=== PATIENT | female | born 1965 | race Caucasian/White ===

== ENCOUNTER 2022-09-10 14:13 | Inpatient (IN) | payer OTHER ==
[~2022-09-10] VITALS: Ht 165.1 cm; Wt 63.5 kg
[2022-09-10 14:18] VITALS: BP 105/56
--- NOTE | 2022-09-10 14:20 | NUR ---
PT BIB [facility] C/C RECTAL BLEEDING S/P COLONOSCOPY. EBL 300. ON ARRIVAL PT ACTIVELY BLEEDING. PADS PLACED. HYPOTENSIVE. IV INSERTED TO RIGHT AC# 18GUAGE BLOOD DRAWN LEFT AC #20GUAGE. NSR ON MONITOR. FLUIDS INUFISNG.
--- NOTE | 2022-09-10 14:45 | NUR ---
LARGE AMOUNTS OF BLOOD CLOTS NOTED APPROX 1000ML EBL. DR MILLS AWARE
[2022-09-10 14:53] LABS: BASOPHILS % (AUTO) 0.2 % (0.0-2.0); EOSINOPHILS % (AUTO) 0.2 % (0.0-4.0); HEMATOCRIT 35.1 % (36-48); HEMOGLOBIN 11.8 g/dL (12.0-16.0); LYMPHOCYTES % (AUTO) 10.8 % (20.5-51.1); MEAN CORPUSCULAR HEMOGLOBIN 32 pg (27-31); MEAN CORPUSCULAR HGB CONC 34 g/dL (33-37); MEAN CORPUSCULAR VOLUME 95.9 fL (80-94); MONOCYTES # (AUTO) 0.4 K/uL (0.8-1.0); MONOCYTES % (AUTO) 4.3 % (1.7-9.3); NEUTROPHILS # (AUTO) 7.8 K/uL (1.8-7.7); NEUTROPHILS % (AUTO) 84.5 % (42.2-75.2); PLATELET COUNT (AUTO) 244 K/uL (140-450); RED BLOOD CELL COUNT(AUTO) 3.66 MIL/uL (4.20-5.40); WHITE BLOOD COUNT (AUTO) 9.3 K/uL (4.8-10.8)
[2022-09-10] MEDS ORDERED: MAGNESIUM OXIDE 400 MG TAB PO PRN (15:00)
[2022-09-10] MEDS ORDERED: POTASSIUM CHLORIDE 10 MEQ TABER PO PRN (15:00)
[2022-09-10] MEDS ORDERED: ONDANSETRON 4 MG/2 ML VIAL IVP PRN (15:00)
[2022-09-10] MEDS ORDERED: ACETAMINOPHEN 325 MG TAB PO PRN (15:00)
[2022-09-10] MEDS ORDERED: HYDROcodone/APAP 5/325 MG 1 TAB TAB PO PRN (15:00)
[2022-09-10] MEDS ORDERED: MORPHINE SULFATE 4 MG/ML SYR IVP PRN (15:00)
[2022-09-10 15:10] LABS: ANION GAP 14.6 (8-16); CREATININE 0.7 mg/dL (0.6-1.3); POTASSIUM 3.6 mmol/L (3.5-5.1); TOTAL BILIRUBIN 0.7 mg/dL (0.0-1.0)
[2022-09-10] MEDS ORDERED: fentaNYL citrate 0.05 MG/ML VIAL ONE (15:24)
[2022-09-10] MEDS ORDERED: MIDAZOLAM 2 MG/2 ML VIAL ONE (15:24)
[2022-09-10] MEDS ORDERED: LIDOCAINE 2% 100 MG/5 ML UJET TP ONE (15:25)
--- NOTE | 2022-09-10 15:35 | NUR ---
GI AT BEDSIDE
--- NOTE | 2022-09-10 16:04 | NUR ---
GI MD COMPLETED PROCEDURE NO ACTIVE BLEEDING. PT TO BE ADMITTED TO TELE
[2022-09-10] MEDS ORDERED: EPINEPHrine PFS 0.1 MG/ML SYR IVP ONE (16:12)
[2022-09-10] MEDS ORDERED: SIMETHICONE 40 MG/0.6 ML ONE (16:12)
[2022-09-10] MEDS ORDERED: MIDAZOLAM 2 MG/2 ML VIAL IVP ONE (16:25)
[2022-09-10] MEDS ORDERED: fentaNYL citrate 0.05 MG/ML VIAL IVP ONE (16:25)
[2022-09-10] MEDS ORDERED: FAMO20TA13 PO (18:45)
[2022-09-10] MEDS ORDERED: ATA25 PO (18:45)
[2022-09-10] MEDS ORDERED: ESCI5TAB18 PO (18:45)
--- NOTE | 2022-09-10 19:10 | NUR ---
REPORT RECEIVED FROM RICKY COMER AND RICKY MART.
--- NOTE | 2022-09-10 19:19 | NUR ---
LAB AT BEDSIDE
[2022-09-10 19:29] LABS: BASOPHILS % (AUTO) 0.1 % (0.0-2.0); HEMATOCRIT 32.1 % (36-48); HEMOGLOBIN 10.9 g/dL (12.0-16.0); LYMPHOCYTES # (AUTO) 0.7 K/uL (2.5-16.5); LYMPHOCYTES % (AUTO) 6.4 % (20.5-51.1); MEAN CORPUSCULAR HEMOGLOBIN 32 pg (27-31); MEAN CORPUSCULAR HGB CONC 34 g/dL (33-37); MEAN CORPUSCULAR VOLUME 94.1 fL (80-94); MONOCYTES # (AUTO) 0.5 K/uL (0.8-1.0); MONOCYTES % (AUTO) 4.8 % (1.7-9.3); NEUTROPHILS # (AUTO) 9.6 K/uL (1.8-7.7); NEUTROPHILS % (AUTO) 88.7 % (42.2-75.2); PLATELET COUNT (AUTO) 163 K/uL (140-450); RED BLOOD CELL COUNT(AUTO) 3.41 MIL/uL (4.20-5.40); RED CELL DISTRIBUTION WIDTH 14.9 % (11.6-13.7); WHITE BLOOD COUNT (AUTO) 10.8 K/uL (4.8-10.8)
--- NOTE | 2022-09-10 19:40 | NUR ---
REPORT GIVEN TO RICKY GALVEZ. TRANSFER OF CARE.
--- NOTE | 2022-09-10 19:45 | NUR ---
Patient will be admitted to care of MD DIMA. Admited to TELEMETRY. Will go to room 123A. Belongings list completed. Report to RICKY GALVEZ. TRANSFER OF CARE.
[2022-09-10 20:05] VITALS: BP 98/60
--- NOTE | 2022-09-10 20:05 | NUR ---
RECEIVED REPORT FROM ER NURSE YOLANDA FOR CONTINUITY OF CARE. PATIENT IS A&O X4. PATIENT IS ON ROOM AIR, BREATHING IS NORMAL WITH SYMMETRICAL RISE AND FALL OF CHEST. PATIENT'S IV IS A 18G LAC, A 18G RAC, AND A 22G R HAND; NO FLUIDS RUNNING AT THIS TIME. PATIENT HAD RECEIVED 1 UNI OF BLOOD IN ER WITH 2 BOLUSES PER ER NURSE YOLANDA. PATIENT IS AWAKE AND ALERT. PATIENT'S MOOD IS POSITIVE; PATIENT GREETED ME WHEN I INTRODUCED MYSELF, SMILING AND APPEARS TO BE IN A GOOD MOOD. PATIENT WAS ABLE TO AMBULATE WITHOUT ASSISTANCE FROM RNEY TO BED. PATIENT'S VITALS ARE: BP 98/60, HR 96, O2 98, RR 18, TEMP 96.6. BED IS IN LOWEST POSITION, WHEELS LOCKED, CALL LIGHT IN PLACE. WILL CONTINUE TO OBSERVE PATIENT.
--- NOTE | 2022-09-10 22:30 | NUR ---
PATIENT REQUESTED THAT HER IV'S BE REMOVED, BECAUSE THEY WERE UNCOMFORTABLE. I FLUSHED THE IV SITES. ALL IV'S WERE PATENT. PATIENT STILL WANTED THEM REMOVED. I EXPLAINED TO THE PATIENT THAT WE NEEDED TO KEEP THE IV SITES IN BECAUSE SHE WOULD NEED THEM IF WE WERE TO GIVE HER FLUIDS OR BLOOD. PATIENT ASKED THAT THE TWO IVS THAT WERE LOCATED IN HER ARMS BE REMOVED (BOTH 18G AC), SINCE SHE HAD THE ONE IN HER HAND. I EXPLAINED TO HER THAT THOSE IVS WERE FOR BLOOD WHILE THE IV IN HER HAND WAS FOR FLUID. SHE CONTINUED TO REQUEST THAT THEY BE REMOVED, SO I ASKED HER WHICH ONE WAS CAUSING THE MOST DISCOMFORT. SHE STATED THE ONE IN HER RIGHT ARM. I TOLD I COULD REMOVE THAT ONE BUT I WOULD STILL NEED TO KEEP THE OTHER IN, IN CASE SHE NEEDED MORE BLOOD. SHE AGREED. 18G RAC WAS REMOVED; LAC AND RIGHT HAND ARE STILL PATENT. WILL CONTINUE TO OBSERVE PATIENT.
[2022-09-11] VITALS: BP 96/55
--- NOTE | 2022-09-11 00:30 | NUR ---
OBTAINED 0000 VITALS FROM PATIENT. VITALS WERE: BP 96/55, HR 85, O2 97, RR 18, TEMP 98.2. PATIENT WAS SLEEPING WHEN I ENTERED THE ROOM. PATIENT WAS EASILY AWAKENED. BREATHING WAS NORMAL WITH SYMMETRICAL RISE AND FALL OF CHEST. WILL CONTINUE TO OBSERVE PATIENT.
--- NOTE | 2022-09-11 03:00 | NUR ---
LOOKED IN ON PATIENT. PATIENT WAS SLEEPING, LYING SUPINE. BREATHING WAS NORMAL WITH SYMMETRICAL RISE AND FALL OF CHEST. BED WAS IN LOWEST POSITION WHEELS LOCKED, CALL LIGHT IN PLACE. WILL CONTINUE TO OBSERVE PATIENT.
[2022-09-11 04:00] VITALS: BP 97/50
--- NOTE | 2022-09-11 04:30 | NUR ---
ENTERED ROOM TO OBTAIN 0400 VITALS. VITALS WERE: BP 97/50, HR 70, O2 99, RR 18, TEMP 97.5. PATIENT WAS SLEEPING WHEN I ENTERED ROOM, LYING SUPINE. PATIENT WAS EASILY AWAKENED AND COOPERATIVE FOR VITALS. PATIENT ASKED AGAIN TO HAVE HER IV REMOVED. I RE-EXPLAINED TO THE PATIENT THAT THE IVS NEED TO STAY IN PLACE IN CASE SHE NEEDS BLOOD OR FLUIDS. I FLUSHED BOTH IVS TO ENSURE PATENCY. IVS WERE PATENT. PATIENT'S BREATHING WAS NORMAL WITH SYMMETRICAL RISE AND FALL OF CHEST. WILL CONTINUE TO OBSERVE PATIENT.
[2022-09-11 05:30] LABS: BASOPHILS % (AUTO) 0.3 % (0.0-2.0); EOSINOPHILS % (AUTO) 0.5 % (0.0-4.0); HEMOGLOBIN 8.4 g/dL (12.0-16.0); LYMPHOCYTES # (AUTO) 1.5 K/uL (2.5-16.5); LYMPHOCYTES % (AUTO) 31.2 % (20.5-51.1); MEAN CORPUSCULAR HEMOGLOBIN 31 pg (27-31); MEAN CORPUSCULAR HGB CONC 34 g/dL (33-37); MEAN CORPUSCULAR VOLUME 93.4 fL (80-94); MONOCYTES # (AUTO) 0.4 K/uL (0.8-1.0); MONOCYTES % (AUTO) 9.2 % (1.7-9.3); NEUTROPHILS # (AUTO) 2.9 K/uL (1.8-7.7); NEUTROPHILS % (AUTO) 58.8 % (42.2-75.2); PLATELET COUNT (AUTO) 163 K/uL (140-450); RED BLOOD CELL COUNT(AUTO) 2.68 MIL/uL (4.20-5.40); RED CELL DISTRIBUTION WIDTH 14.5 % (11.6-13.7); WHITE BLOOD COUNT (AUTO) 4.8 K/uL (4.8-10.8)
[2022-09-11 06:24] LABS: ALBUMIN 2.4 g/dL (3.4-5.0); ANION GAP 10.2 (8-16); CARBON DIOXIDE 25.5 mmol/L (21-32); CREATININE 0.7 mg/dL (0.6-1.3); MAGNESIUM 1.9 mg/dL (1.8-2.4); PHOSPHORUS 3.2 mg/dL (2.5-4.9); POTASSIUM 3.7 mmol/L (3.5-5.1); TOTAL BILIRUBIN 0.8 mg/dL (0.0-1.0)
--- NOTE | 2022-09-11 06:39 | NUR ---
RECEIVED PHONE CALL FROM DR VASQUEZ (GI DOCTOR). HE INQUIRED HOW THE PATIENT WAS DOING. I INFORMED HIM OF THE PATIENT'S LAST SET OF VITALS, PATIENT'S ABILITY TO AMBULATE WITHOUT ASSISTANCE, PATIENT'S 2 VOIDS AND ONE BM. HE ASKED ABOUT THE BM; I TOLD HIM PATIENT STATED THAT THE BM WAS NORMAL WITH A LITTLE BIT OF BLOOD IN IT. DR. VASQUEZ SAID THAT'S FINE; AND STATED THAT THE PATIENT WAS OKAY TO ADVANCE TO A REGULAR DIET AND OKAY TO BE D/C HOME FROM A GI PERSPECTIVE. HE ALSO STATED THAT THE OFFICE WILL CALL THE PATIENT FOR A FOLLOW UP APPOINTMENT. I PUT IN ORDER FOR NEW DIET AND INFORMED PATIENT OF DOCTOR'S CALL. PATIENT WAS GLAD TO HEAR IT. WILL CONTINUE TO OBSERVE PATIENT.
--- NOTE | 2022-09-11 07:30 | NUR ---
ENDORSED TO DAY SHIFT NURSE GUME FOR CONTINUITY OF CARE. PATIENT IS STABLE.
[2022-09-11 08:00] VITALS: BP 97/53
--- NOTE | 2022-09-11 10:12 | NUR ---
PATIENT HAS BEEN SCREENED AND CATEGORIZED HIGH NUTRITION RISK. PATIENT WILL BE SEEN WITHIN 1-2 DAYS OF ADMISSION. 09/10/22-09/12/22 [facility] REFERRAL RECEIVED FOR DIARRHEA > 3 DAYS REVIEWED BY MARCOS PINA [address]
[2022-09-11 12:00] VITALS: BP 93/51
[2022-09-11 14:08] VITALS: BP 93/51
--- NOTE | 2022-09-11 14:21 | NUR ---
DC PLANNING SW MET W/PT AT BEDSIDE TO COMPLETE ASSESSMENT. PT REPORTS RESIDING ON A GROUND FLOOR APT, ALONE AT THE ADDRESS LISTED ON FILE. PT IDENTIFIED SOULEYMANE HELLER, DAUGHTER, AND ANTONI CLOUD, SON, EMERGENCY CONTACT. PT REPORTS MEETING W/PCP. DR GIRNO NEEDED, LAST VISIT; 2 WEEKS AGO. SW SPOKE TO PT ABOUT IMPORTANCE OF FOLLOW UP CARE, PT RECEPTIVE AND DECLINED SW OFFER TO MAKE FOLLOW UP APPT. PT REPORTS SHE WILL MAKE HER OWN APT ONCE SHE IS ABLE TO WORK AROUND HER WORK SCHEDULE. PATIENT DENIES TAKING MEDICATION AT THIS TIME AND DENIES BARRIERS IN ACCESS TO MEDICATION, IF NEEDED. PT REPORTS RECEIVING MEDICATION FROM [facility] IN [place], WHEN NEEDED. PT INDEPENDENT IN ALL ACTIVITIES AND DENIES USE OF DME. PT DENIED MH HX/ SA. PT REPORTS ADEQUATE FOOD IN THE HOME AND REPORTS RECEIVING [employer] BENEFITS OF $23/MONTH. PT REPORTS DC PLAN IS TO RETURN [place] WITH DAUGHTER PROVIDING TRANSPORTATION , WHEN MEDICALLY STABLE. Addendum: 09/11/22 at 1422 by Dread BEDOLLA Amended: Links added.
--- NOTE | 2022-09-11 14:25 | NUR ---
DISCHARGE INSTRUCTIONS AND PLAN OF CARE DISCUSSED WITH PATIENT. PATIENT VERBALIZED UNDERSTANDING. IV DISCONTINUED. PATIENT DISCHARGED HOME VIA WHEELCHAIR IN PRIVATE CAR. Bess TESFAYE RN.
== END 2022-09-11 14:45 | disposition home or self-care (01) | DRG 810 ==
LOC: MED 14:13 → MTU 15:02
PROVIDERS: ADMIT Hospitalist; ATTEND Student in an Organized Health Care Education/Training Program
PROC: 0W3P8ZZ Control Bleeding in Gastrointestinal Tract, Via Natural or Artificial Opening Endoscopic (ICD-10-PCS; 2022-09-10)
PROC: 30233N1 Transfusion of Nonautologous Red Blood Cells into Peripheral Vein, Percutaneous Approach (ICD-10-PCS; 2022-09-10)
PROC: 0DBN8ZZ Excision of Sigmoid Colon, Via Natural or Artificial Opening Endoscopic (ICD-10-PCS; principal; 2022-09-10 15:30)
DX: K91.840 Postprocedural hemorrhage of a digestive system organ or structure following a digestive system procedure (principal); R57.8 Other shock; K92.2 Gastrointestinal hemorrhage, unspecified; K63.5 Polyp of colon; R65.10 Systemic inflammatory response syndrome (SIRS) of non-infectious origin without acute organ dysfunction; Z20.822 Contact with and (suspected) exposure to COVID-19; Y83.9 Surgical procedure, unspecified as the cause of abnormal reaction of the patient, or of later complication, without mention of misadventure at the time of the procedure; Y82.8 Other medical devices associated with adverse incidents; D64.89 Other specified anemias; E44.0 Moderate protein-calorie malnutrition; Z68.23 Body mass index [BMI] 23.0-23.9, adult
CPT/HCPCS: 36415; 80053; 83735; 84100; 85025; 86886; 86900; 86901; 86920; 87081; 99291; J0171; J2250; J2270; J2405; J3010